=== PATIENT | male | born 1995 | race Caucasian/White ===

== ENCOUNTER 2021-07-24 13:35 | Inpatient (IN) | payer BC, OTHER ==
[2021-07-24 15:29] VITALS: BMI 29.4
[2021-07-24] MEDS ORDERED: ONDANSETRON *ODT* 4 MG TABLET SL PRN (16:40)
[2021-07-24] MEDS ORDERED: MENTHOL/PHENOL 1 EACH UD MM PRN (16:40)
[2021-07-24] MEDS ORDERED: MAGNESIUM CITRATE 300 ML BOTTLE PO PRN (16:40)
[2021-07-24] MEDS ORDERED: LOPERAMIDE HCL 2 MG CAPSULE PO PRN (16:40)
[2021-07-24] MEDS ORDERED: BISMUTH SUBSALICYLATE 524 MG/30 ML PO PRN (16:40)
[2021-07-24] MEDS ORDERED: MAG HYDROX/AL HYDROX/SIMETH 30 ML UNIT-DOSE CUP PO PRN (16:40)
[2021-07-24] MEDS ORDERED: NICOTINE 10 MG CARTRIDGE (INHALER) IH PRN (16:40)
[2021-07-24] MEDS ORDERED: MAGNESIUM HYDROX 2400MG/30ML ORAL SUSPENSION 30 ML CUP PO PRN (16:40)
[2021-07-24] MEDS ORDERED: METHOCARBAMOL 500 MG TABLET PO PRN (16:40)
[2021-07-24] MEDS ORDERED: ACETAMINOPHEN 325 MG TABLET (FP) PO PRN ×2 (16:40)
[2021-07-24] MEDS ORDERED: IBUPROFEN 400 MG TABLET (FP) PO PRN (16:40)
[2021-07-24] MEDS: hydrOXYzine PAMOATE 25 MG CAPSULE (FP) PO SCH ×2 (18:56→22:30)
[2021-07-24] MEDS: PRENATAL VITAMINS W/ FOLIC ACID TABLET (FP) PO SCH (20:04)
[2021-07-24] MEDS ORDERED: THIAMINE HCL 100 MG TABLET (FP) PO SCH (22:00)
[2021-07-24] MEDS ORDERED: MELATONIN 5 MG TABLETS PO SCH (22:00)
[2021-07-25] MEDS: hydrOXYzine PAMOATE 25 MG CAPSULE (FP) PO SCH ×2 (07:17→10:26)
[2021-07-25] MEDS ORDERED: methaDONE HCL 40 MG DISPERSABLE TABLET PO SCH (09:15)
[2021-07-25] MEDS: PRENATAL VITAMINS W/ FOLIC ACID TABLET (FP) PO SCH (10:26)
[2021-07-25 11:16] LABS: HEMATOCRIT 42.4 % (35.4-49); HEMOGLOBIN 14.4 GM/dL (11.7-16.9); MCHC 33.9 g/dl (32.0-35.9); MEAN CELL VOLUME 88.6 fl (80-96); MEAN PLT VOLUME 8.6 fl (7.5-11.1); PLATELET COUNT 236 10^3/uL (134-434); RBC 4.78 M/mm3 (4.00-5.60); RDW 13.2 % (11.9-15.9); WHITE BLOOD COUNT 7.4 K/mm3 (4.0-10.0)
[2021-07-25 11:20] LABS: BLOOD UREA NITROGEN 13.6 mg/dL (7-18)
[2021-07-25 11:22] LABS: ALBUMIN 3.6 g/dl (3.4-5.0); CALCIUM 8.9 mg/dL (8.5-10.1)
[2021-07-25 11:23] LABS: CREATININE 0.8 mg/dL (0.55-1.3)
[2021-07-25 11:24] LABS: BILIRUBIN,TOTAL 0.6 mg/dL (0.2-1); TOT PROT 6.9 g/dl (6.4-8.2)
[2021-07-25 12:50] VITALS: BP 141/96; PULSE 102; TEMP 97.7
== END 2021-07-25 12:51 | disposition home or self-care (01) | DRG 897 ==
LOC: YASAS 13:35 → Y3N 16:55 → UNDOADMIN 16:55 → UNDODISIN 07-25 12:51
PROVIDERS: ADMIT Allergy & Immunology; ATTEND Allergy & Immunology
PROC: HZ2ZZZZ Detoxification Services for Substance Abuse Treatment (ICD-10-PCS; principal; 2021-07-24)
DX: F11.23 Opioid dependence with withdrawal (principal); F14.20 Cocaine dependence, uncomplicated; F13.20 Sedative, hypnotic or anxiolytic dependence, uncomplicated; F12.20 Cannabis dependence, uncomplicated; F41.8 Other specified anxiety disorders; F32.A Depression, unspecified; I10 Essential (primary) hypertension; Z62.810 Personal history of physical and sexual abuse in childhood; Z88.0 Allergy status to penicillin; Z72.89 Other problems related to lifestyle
CPT/HCPCS: 36415; 80053; 85027; 87811; C9803-CS; Q0162; U0003; U0005

== ENCOUNTER 2022-05-25 18:01 | Inpatient (IN) | payer OTHER ==
[2022-05-25 18:35] VITALS: BMI 27.7
[2022-05-25] MEDS ORDERED: NALOXONE HCL 0.4 MG/ML VIAL IM PRN (19:06)
[2022-05-25] MEDS ORDERED: P-EPHED 60MG/TRIPROLIDI 2.5MG TABLET PO PRN (19:06)
[2022-05-25] MEDS ORDERED: DICYCLOMINE HCL 10 MG CAPSULE PO PRN (19:06)
[2022-05-25] MEDS ORDERED: BISMUTH SUBSALICYLATE 524 MG/30 ML PO PRN (19:06)
[2022-05-25] MEDS ORDERED: IBUPROFEN 400 MG TABLET (FP) PO PRN (19:06)
[2022-05-25] MEDS ORDERED: MAG HYDROX/AL HYDROX/SIMETH 30 ML UNIT-DOSE CUP PO PRN (19:06)
[2022-05-25] MEDS ORDERED: MAGNESIUM HYDROX 2400MG/30ML ORAL SUSPENSION 30 ML CUP PO PRN (19:06)
[2022-05-25] MEDS ORDERED: POLYETHYLENE GLYCOL (HEALTHYLAX) 3350 17 GM PACKET PO PRN (19:06)
[2022-05-25] MEDS ORDERED: guaiFENesin 200 MG/10 ML 10 ML UNIT-DOSE CUPS PO PRN (19:06)
[2022-05-25] MEDS ORDERED: BENZOCAINE/MENTHOL (CHLORASEPTIC ) LOZENGE MM PRN (19:06)
[2022-05-25] MEDS ORDERED: LOPERAMIDE HCL 2 MG CAPSULE PO PRN (19:06)
[2022-05-25] MEDS ORDERED: ACETAMINOPHEN 325 MG TABLET (FP) PO PRN ×2 (19:06)
[2022-05-25] MEDS ORDERED: IBUPROFEN 600 MG TABLET (FP) PO PRN (19:06)
[2022-05-25] MEDS ORDERED: NALOXONE HCL (KLOXXADO) 8 MG SPRAY NS PRN (19:06)
[2022-05-25] MEDS: LISINOPRIL 10 MG TABLET PO SCH (20:00)
[2022-05-25] MEDS: METHOCARBAMOL 500 MG TABLET PO PRN (22:46)
[2022-05-25] MEDS: hydrOXYzine PAMOATE 25 MG CAPSULE (FP) PO PRN (22:46)
[2022-05-25] MEDS: THIAMINE HCL 100 MG TABLET (FP) PO SCH (22:46)
[2022-05-25] MEDS: MELATONIN 5 MG TABLETS PO PRN (22:47)
[2022-05-26] MEDS: PRENATAL VITAMINS W/ FOLIC ACID TABLET (FP) PO SCH (10:19)
[2022-05-26] MEDS: LISINOPRIL 10 MG TABLET PO SCH (10:19)
[2022-05-26] MEDS ORDERED: methaDONE HCL 10 MG TABLET (FOR DETOX USE ONLY) PO ONE (10:21)
[2022-05-26] MEDS: hydrOXYzine PAMOATE 25 MG CAPSULE (FP) PO PRN ×2 (10:54→22:21)
[2022-05-26] MEDS: METHOCARBAMOL 500 MG TABLET PO PRN ×2 (10:54→22:21)
[2022-05-26 11:09] LABS: HEMATOCRIT 46.8 % (35.4-49); HEMOGLOBIN 15.9 GM/dL (11.7-16.9); MCH 30.2 pg (25.7-33.7); MEAN CELL VOLUME 88.7 fl (80-96); MEAN PLT VOLUME 8.5 fl (7.5-11.1); PLATELET COUNT 285 10^3/uL (134-434); RBC 5.28 M/mm3 (4.00-5.60); RDW 13.1 % (11.9-15.9); WHITE BLOOD COUNT 6.3 K/mm3 (4.0-10.0)
[2022-05-26 11:14] LABS: ALBUMIN 4.2 g/dl (3.4-5.0); CALCIUM 9.4 mg/dL (8.5-10.1)
[2022-05-26 11:16] LABS: BLOOD UREA NITROGEN 10.1 mg/dL (7-18)
[2022-05-26 11:19] LABS: TOT PROT 7.7 g/dl (6.4-8.2)
[2022-05-26] MEDS: cloNIDine HCL 0.1 MG TABLET PO PRN ×2 (12:07→22:21)
[2022-05-26] MEDS: ONDANSETRON *ODT* 4 MG TABLET SL PRN (12:08)
[2022-05-26] MEDS: THIAMINE HCL 100 MG TABLET (FP) PO SCH (22:18)
[2022-05-26] MEDS: MELATONIN 5 MG TABLETS PO PRN (22:18)
[2022-05-27] MEDS: cloNIDine HCL 0.1 MG TABLET PO PRN ×3 (02:40→22:10)
[2022-05-27] MEDS: PRENATAL VITAMINS W/ FOLIC ACID TABLET (FP) PO SCH (10:22)
[2022-05-27] MEDS: LISINOPRIL 10 MG TABLET PO SCH (10:23)
[2022-05-27] MEDS: METHOCARBAMOL 500 MG TABLET PO PRN ×3 (10:23→23:05)
[2022-05-27] MEDS: hydrOXYzine PAMOATE 25 MG CAPSULE (FP) PO PRN (10:23)
[2022-05-27] MEDS: ONDANSETRON *ODT* 4 MG TABLET SL PRN (17:12)
[2022-05-27] MEDS: traZODone HCL 100 MG TABLET (FP) PO SCH (22:11)
[2022-05-27] MEDS: THIAMINE HCL 100 MG TABLET (FP) PO SCH (22:11)
[2022-05-28] MEDS: METHOCARBAMOL 500 MG TABLET PO PRN ×3 (05:11→22:09)
[2022-05-28] MEDS: ONDANSETRON *ODT* 4 MG TABLET SL PRN (08:45)
[2022-05-28] MEDS: LISINOPRIL 10 MG TABLET PO SCH (09:33)
[2022-05-28] MEDS: PRENATAL VITAMINS W/ FOLIC ACID TABLET (FP) PO SCH (09:34)
[2022-05-28] MEDS: hydrOXYzine PAMOATE 25 MG CAPSULE (FP) PO PRN ×2 (09:34→17:31)
[2022-05-28] MEDS ORDERED: methaDONE HCL 10 MG TABLET (FOR DETOX USE ONLY) PO ONE (10:00)
[2022-05-28] MEDS: cloNIDine HCL 0.1 MG TABLET PO PRN ×2 (14:41→22:08)
[2022-05-28] MEDS: THIAMINE HCL 100 MG TABLET (FP) PO SCH (22:08)
[2022-05-28] MEDS: traZODone HCL 100 MG TABLET (FP) PO SCH (22:08)
[2022-05-29] MEDS: METHOCARBAMOL 500 MG TABLET PO PRN ×3 (05:08→22:22)
[2022-05-29] MEDS: ONDANSETRON *ODT* 4 MG TABLET SL PRN (09:07)
[2022-05-29] MEDS: PRENATAL VITAMINS W/ FOLIC ACID TABLET (FP) PO SCH (09:45)
[2022-05-29] MEDS: hydrOXYzine PAMOATE 25 MG CAPSULE (FP) PO PRN (09:45)
[2022-05-29] MEDS: LISINOPRIL 10 MG TABLET PO SCH (09:45)
[2022-05-29] MEDS: THIAMINE HCL 100 MG TABLET (FP) PO SCH (22:22)
[2022-05-29] MEDS: traZODone HCL 50 MG TABLET (FP) PO SCH (22:22)
[2022-05-30] MEDS: METHOCARBAMOL 500 MG TABLET PO PRN ×2 (07:51→17:34)
[2022-05-30 09:08] VITALS: RESP 18
[2022-05-30] MEDS ORDERED: methaDONE HCL 10 MG TABLET (FOR DETOX USE ONLY) PO ONE (10:00)
[2022-05-30] MEDS: PRENATAL VITAMINS W/ FOLIC ACID TABLET (FP) PO SCH (10:02)
[2022-05-30] MEDS: hydrOXYzine PAMOATE 25 MG CAPSULE (FP) PO PRN (10:02)
[2022-05-30] MEDS: LISINOPRIL 10 MG TABLET PO SCH (10:02)
[2022-05-30] MEDS ORDERED: cloNIDine HCL 0.1 MG TABLET PO ONE (12:48)
[2022-05-30] MEDS: THIAMINE HCL 100 MG TABLET (FP) PO SCH (22:08)
[2022-05-30] MEDS: traZODone HCL 50 MG TABLET (FP) PO SCH (22:08)
[2022-05-31] MEDS: hydrOXYzine PAMOATE 25 MG CAPSULE (FP) PO PRN (05:12)
[2022-05-31] MEDS: METHOCARBAMOL 500 MG TABLET PO PRN (05:13)
[2022-05-31] MEDS: ONDANSETRON *ODT* 4 MG TABLET SL PRN (05:14)
[2022-05-31] MEDS: LISINOPRIL 10 MG TABLET PO SCH (10:45)
[2022-05-31] MEDS: PRENATAL VITAMINS W/ FOLIC ACID TABLET (FP) PO SCH (10:45)
[2022-05-31 12:51] VITALS: BP 132/87; PULSE 67; TEMP 97.4
== END 2022-05-31 12:51 | disposition other institution (70) | DRG 773 ==
LOC: YASAS 18:01 → Y6N 19:29
PROVIDERS: ADMIT Allergy & Immunology; ATTEND Family Medicine
PROC: HZ2ZZZZ Detoxification Services for Substance Abuse Treatment (ICD-10-PCS; principal; 2022-05-25)
DX: F11.23 Opioid dependence with withdrawal (principal); F13.20 Sedative, hypnotic or anxiolytic dependence, uncomplicated; F12.20 Cannabis dependence, uncomplicated; F17.210 Nicotine dependence, cigarettes, uncomplicated; F19.282 Other psychoactive substance dependence with psychoactive substance-induced sleep disorder; F19.280 Other psychoactive substance dependence with psychoactive substance-induced anxiety disorder; F41.9 Anxiety disorder, unspecified; F32.A Depression, unspecified; Z62.810 Personal history of physical and sexual abuse in childhood
CPT/HCPCS: 36415; 80053; 85027; 86780; C9803-CS; G0463; Q0162; U0003; U0005

== ENCOUNTER 2022-05-31 13:07 | Inpatient (IN) | payer BC, OTHER ==
[2022-05-31] MEDS ORDERED: POLYETHYLENE GLYCOL (HEALTHYLAX) 3350 17 GM PACKET PO PRN (14:45)
[2022-05-31] MEDS ORDERED: guaiFENesin 200 MG/10 ML 10 ML UNIT-DOSE CUPS PO PRN (14:45)
[2022-05-31] MEDS ORDERED: LOPERAMIDE HCL 2 MG CAPSULE PO PRN (14:45)
[2022-05-31] MEDS ORDERED: MAGNESIUM HYDROX 2400MG/30ML ORAL SUSPENSION 30 ML CUP PO PRN (14:45)
[2022-05-31] MEDS ORDERED: P-EPHED 60MG/TRIPROLIDI 2.5MG TABLET PO PRN (14:45)
[2022-05-31] MEDS ORDERED: BENZOCAINE/MENTHOL (CHLORASEPTIC ) LOZENGE MM PRN (14:45)
[2022-05-31] MEDS: THIAMINE HCL 100 MG TABLET (FP) PO SCH (21:47)
[2022-05-31] MEDS: hydrOXYzine PAMOATE 25 MG CAPSULE (FP) PO PRN (21:47)
[2022-05-31] MEDS: MELATONIN 5 MG TABLETS PO SCH (21:47)
[2022-05-31] MEDS: traZODone HCL 50 MG TABLET (FP) PO SCH (21:48)
[2022-06-01] MEDS: MAG HYDROX/AL HYDROX/SIMETH 30 ML UNIT-DOSE CUP PO PRN (09:02)
[2022-06-01] MEDS: PRENATAL VITAMINS W/ FOLIC ACID TABLET (FP) PO SCH (09:54)
[2022-06-01] MEDS: LISINOPRIL 10 MG TABLET PO SCH (09:54)
[2022-06-01] MEDS: NICOTINE 7 MG/24 HOURS TOPICAL PATCH TD SCH (09:55)
[2022-06-01] MEDS: IBUPROFEN 400 MG TABLET (FP) PO PRN (09:58)
[2022-06-01] MEDS: hydrOXYzine PAMOATE 25 MG CAPSULE (FP) PO PRN ×2 (09:59→22:54)
[2022-06-01] MEDS ORDERED: PNEUMOC 20-VAL CONJ-DIP CRM/PF 0.5 ML SYRINGE IM ONE (12:00)
[2022-06-01] MEDS ORDERED: cloNIDine HCL 0.1 MG TABLET PO PRN (15:14)
[2022-06-01] MEDS: cloNIDine HCL 0.1 MG TABLET PO PRN (15:38)
[2022-06-01] MEDS: THIAMINE HCL 100 MG TABLET (FP) PO SCH (21:31)
[2022-06-01] MEDS: traZODone HCL 50 MG TABLET (FP) PO SCH (21:31)
[2022-06-01] MEDS: MELATONIN 5 MG TABLETS PO SCH (21:31)
[2022-06-01] MEDS: ACETAMINOPHEN 325 MG TABLET (FP) PO PRN (21:33)
[2022-06-01] MEDS ORDERED: cloNIDine HCL 0.1 MG TABLET PO SCH (22:00)
[2022-06-02] MEDS: cloNIDine HCL 0.1 MG TABLET PO PRN ×2 (06:41→21:37)
[2022-06-02] MEDS: hydrOXYzine PAMOATE 25 MG CAPSULE (FP) PO PRN ×3 (06:42→21:36)
[2022-06-02] MEDS: PRENATAL VITAMINS W/ FOLIC ACID TABLET (FP) PO SCH (09:49)
[2022-06-02] MEDS: NICOTINE 7 MG/24 HOURS TOPICAL PATCH TD SCH (09:50)
[2022-06-02] MEDS: NICOTINE 10 MG CARTRIDGE (INHALER) IH PRN ×2 (09:50→18:49)
[2022-06-02] MEDS: LISINOPRIL 10 MG TABLET PO SCH (09:51)
[2022-06-02] MEDS: ACETAMINOPHEN 325 MG TABLET (FP) PO PRN ×2 (09:52→21:37)
[2022-06-02] MEDS: MAG HYDROX/AL HYDROX/SIMETH 30 ML UNIT-DOSE CUP PO PRN (13:23)
[2022-06-02] MEDS: THIAMINE HCL 100 MG TABLET (FP) PO SCH (21:36)
[2022-06-02] MEDS: traZODone HCL 50 MG TABLET (FP) PO SCH (21:36)
[2022-06-02] MEDS: MELATONIN 5 MG TABLETS PO SCH (21:36)
[2022-06-03] MEDS: IBUPROFEN 400 MG TABLET (FP) PO PRN ×2 (07:05→20:43)
[2022-06-03] MEDS: hydrOXYzine PAMOATE 25 MG CAPSULE (FP) PO PRN (07:06)
[2022-06-03] MEDS: NICOTINE 7 MG/24 HOURS TOPICAL PATCH TD SCH (09:10)
[2022-06-03] MEDS: PRENATAL VITAMINS W/ FOLIC ACID TABLET (FP) PO SCH (09:10)
[2022-06-03] MEDS: LISINOPRIL 10 MG TABLET PO SCH (09:11)
[2022-06-03] MEDS: cloNIDine HCL 0.1 MG TABLET PO PRN ×2 (09:12→21:32)
[2022-06-03] MEDS: MAG HYDROX/AL HYDROX/SIMETH 30 ML UNIT-DOSE CUP PO PRN (11:34)
[2022-06-03] MEDS: ACETAMINOPHEN 325 MG TABLET (FP) PO PRN (14:34)
[2022-06-03] MEDS: MELATONIN 5 MG TABLETS PO SCH (21:32)
[2022-06-03] MEDS: traZODone HCL 50 MG TABLET (FP) PO SCH (21:32)
[2022-06-03] MEDS: THIAMINE HCL 100 MG TABLET (FP) PO SCH (21:32)
[2022-06-03] MEDS: SUVOREXANT 10 MG TABLET PO PRN (21:34)
[2022-06-04] MEDS: PRENATAL VITAMINS W/ FOLIC ACID TABLET (FP) PO SCH (09:22)
[2022-06-04] MEDS: NICOTINE 10 MG CARTRIDGE (INHALER) IH PRN ×2 (09:23→16:59)
[2022-06-04] MEDS: LISINOPRIL 10 MG TABLET PO SCH (09:23)
[2022-06-04] MEDS: NICOTINE 7 MG/24 HOURS TOPICAL PATCH TD SCH (09:23)
[2022-06-04] MEDS: MAG HYDROX/AL HYDROX/SIMETH 30 ML UNIT-DOSE CUP PO PRN (09:25)
[2022-06-04] MEDS: hydrOXYzine PAMOATE 25 MG CAPSULE (FP) PO PRN (18:15)
[2022-06-04] MEDS: ACETAMINOPHEN 325 MG TABLET (FP) PO PRN (18:15)
[2022-06-04] MEDS: traZODone HCL 50 MG TABLET (FP) PO SCH (21:17)
[2022-06-04] MEDS: DOCUSATE SODIUM 100 MG CAPSULE (FP) PO SCH (21:17)
[2022-06-04] MEDS: THIAMINE HCL 100 MG TABLET (FP) PO SCH (21:17)
[2022-06-04] MEDS: MELATONIN 5 MG TABLETS PO SCH (21:17)
[2022-06-04] MEDS: SUVOREXANT 10 MG TABLET PO PRN (21:18)
[2022-06-05] MEDS: hydrOXYzine PAMOATE 25 MG CAPSULE (FP) PO PRN ×2 (08:04→20:27)
[2022-06-05] MEDS: ACETAMINOPHEN 325 MG TABLET (FP) PO PRN (08:04)
[2022-06-05] MEDS: NICOTINE 7 MG/24 HOURS TOPICAL PATCH TD SCH (09:16)
[2022-06-05] MEDS: DOCUSATE SODIUM 100 MG CAPSULE (FP) PO SCH ×2 (09:16→21:12)
[2022-06-05] MEDS: LISINOPRIL 10 MG TABLET PO SCH (09:16)
[2022-06-05] MEDS: PRENATAL VITAMINS W/ FOLIC ACID TABLET (FP) PO SCH (09:16)
[2022-06-05] MEDS: ONDANSETRON *ODT* 4 MG TABLET SL PRN (11:52)
[2022-06-05] MEDS: METHOCARBAMOL 500 MG TABLET PO PRN ×2 (11:52→20:26)
[2022-06-05] MEDS: MELATONIN 5 MG TABLETS PO SCH (21:12)
[2022-06-05] MEDS: traZODone HCL 50 MG TABLET (FP) PO SCH (21:12)
[2022-06-05] MEDS: NICOTINE 10 MG CARTRIDGE (INHALER) IH PRN (21:12)
[2022-06-05] MEDS: THIAMINE HCL 100 MG TABLET (FP) PO SCH (21:12)
[2022-06-05] MEDS: SUVOREXANT 10 MG TABLET PO PRN (21:13)
[2022-06-06] MEDS: hydrOXYzine PAMOATE 25 MG CAPSULE (FP) PO PRN ×2 (06:20→22:35)
[2022-06-06] MEDS: METHOCARBAMOL 500 MG TABLET PO PRN ×3 (06:20→21:12)
[2022-06-06] MEDS: ONDANSETRON *ODT* 4 MG TABLET SL PRN (09:20)
[2022-06-06] MEDS: PRENATAL VITAMINS W/ FOLIC ACID TABLET (FP) PO SCH (09:21)
[2022-06-06] MEDS: NICOTINE 7 MG/24 HOURS TOPICAL PATCH TD SCH (09:21)
[2022-06-06] MEDS: cloNIDine HCL 0.1 MG TABLET PO PRN (09:21)
[2022-06-06] MEDS: DOCUSATE SODIUM 100 MG CAPSULE (FP) PO SCH ×2 (09:23→21:12)
[2022-06-06] MEDS: LISINOPRIL 10 MG TABLET PO SCH (09:23)
[2022-06-06] MEDS: traZODone HCL 50 MG TABLET (FP) PO SCH (21:12)
[2022-06-06] MEDS: THIAMINE HCL 100 MG TABLET (FP) PO SCH (21:12)
[2022-06-06] MEDS: PRAZOSIN HCL 1 MG CAPSULE PO SCH (21:12)
[2022-06-06] MEDS: SUVOREXANT 10 MG TABLET PO PRN (21:18)
[2022-06-06] MEDS: MELATONIN 5 MG TABLETS PO SCH (21:37)
[2022-06-06] MEDS: ACETAMINOPHEN 325 MG TABLET (FP) PO PRN (23:09)
[2022-06-07] MEDS: LISINOPRIL 10 MG TABLET PO SCH (10:01)
[2022-06-07] MEDS: hydrOXYzine PAMOATE 25 MG CAPSULE (FP) PO PRN (10:01)
[2022-06-07] MEDS: NICOTINE 7 MG/24 HOURS TOPICAL PATCH TD SCH (10:01)
[2022-06-07] MEDS: DOCUSATE SODIUM 100 MG CAPSULE (FP) PO SCH ×2 (10:01→21:21)
[2022-06-07] MEDS: PRENATAL VITAMINS W/ FOLIC ACID TABLET (FP) PO SCH (10:01)
[2022-06-07] MEDS: METHOCARBAMOL 500 MG TABLET PO PRN ×2 (10:01→21:21)
[2022-06-07] MEDS: cloNIDine HCL 0.1 MG TABLET PO PRN (13:07)
[2022-06-07] MEDS: NICOTINE 10 MG CARTRIDGE (INHALER) IH PRN ×2 (16:46→21:23)
[2022-06-07] MEDS: traZODone HCL 50 MG TABLET (FP) PO SCH (21:21)
[2022-06-07] MEDS: MELATONIN 5 MG TABLETS PO SCH (21:21)
[2022-06-07] MEDS: THIAMINE HCL 100 MG TABLET (FP) PO SCH (21:21)
[2022-06-07] MEDS: PRAZOSIN HCL 1 MG CAPSULE PO SCH (21:21)
[2022-06-07] MEDS: SUVOREXANT 10 MG TABLET PO PRN (21:22)
[2022-06-08] MEDS: PRENATAL VITAMINS W/ FOLIC ACID TABLET (FP) PO SCH (10:10)
[2022-06-08] MEDS: DOCUSATE SODIUM 100 MG CAPSULE (FP) PO SCH ×2 (10:11→21:28)
[2022-06-08] MEDS: METHOCARBAMOL 500 MG TABLET PO PRN (10:11)
[2022-06-08] MEDS: NICOTINE 7 MG/24 HOURS TOPICAL PATCH TD SCH (10:11)
[2022-06-08] MEDS: LISINOPRIL 10 MG TABLET PO SCH (10:11)
[2022-06-08] MEDS: hydrOXYzine PAMOATE 25 MG CAPSULE (FP) PO PRN (10:12)
[2022-06-08] MEDS: SUVOREXANT 10 MG TABLET PO PRN (21:28)
[2022-06-08] MEDS: traZODone HCL 50 MG TABLET (FP) PO SCH (21:29)
[2022-06-08] MEDS: PRAZOSIN HCL 1 MG CAPSULE PO SCH (21:29)
[2022-06-08] MEDS: MELATONIN 5 MG TABLETS PO SCH (21:29)
[2022-06-08] MEDS: THIAMINE HCL 100 MG TABLET (FP) PO SCH (21:29)
[2022-06-09] MEDS: NICOTINE 7 MG/24 HOURS TOPICAL PATCH TD SCH (09:14)
[2022-06-09] MEDS: ONDANSETRON *ODT* 4 MG TABLET SL PRN (09:18)
[2022-06-09] MEDS: PRENATAL VITAMINS W/ FOLIC ACID TABLET (FP) PO SCH (09:18)
[2022-06-09] MEDS: LISINOPRIL 10 MG TABLET PO SCH (09:18)
[2022-06-09] MEDS: DOCUSATE SODIUM 100 MG CAPSULE (FP) PO SCH ×2 (09:18→21:18)
[2022-06-09] MEDS: METHOCARBAMOL 500 MG TABLET PO PRN ×2 (09:49→21:17)
[2022-06-09] MEDS ORDERED: COLLOIDAL OATMEAL 1 BAR EACH TP PRN (12:19)
[2022-06-09] MEDS: traZODone HCL 50 MG TABLET (FP) PO SCH (21:17)
[2022-06-09] MEDS: PRAZOSIN HCL 1 MG CAPSULE PO SCH (21:17)
[2022-06-09] MEDS: THIAMINE HCL 100 MG TABLET (FP) PO SCH (21:17)
[2022-06-09] MEDS: MELATONIN 5 MG TABLETS PO SCH (21:18)
[2022-06-09] MEDS: SUVOREXANT 10 MG TABLET PO PRN (21:19)
[2022-06-10] MEDS: NICOTINE 7 MG/24 HOURS TOPICAL PATCH TD SCH (10:16)
[2022-06-10] MEDS: PRENATAL VITAMINS W/ FOLIC ACID TABLET (FP) PO SCH (10:16)
[2022-06-10] MEDS: DOCUSATE SODIUM 100 MG CAPSULE (FP) PO SCH ×2 (10:16→21:32)
[2022-06-10] MEDS: NICOTINE 10 MG CARTRIDGE (INHALER) IH PRN (10:17)
[2022-06-10] MEDS: hydrOXYzine PAMOATE 25 MG CAPSULE (FP) PO PRN ×2 (10:18→21:37)
[2022-06-10] MEDS: ACETAMINOPHEN 325 MG TABLET (FP) PO PRN (10:18)
[2022-06-10] MEDS: METHOCARBAMOL 500 MG TABLET PO PRN ×2 (10:18→21:35)
[2022-06-10] MEDS: LISINOPRIL 10 MG TABLET PO SCH (10:19)
[2022-06-10] MEDS: PRAZOSIN HCL 1 MG CAPSULE PO SCH (21:32)
[2022-06-10] MEDS: THIAMINE HCL 100 MG TABLET (FP) PO SCH (21:32)
[2022-06-10] MEDS: traZODone HCL 50 MG TABLET (FP) PO SCH (21:32)
[2022-06-10] MEDS: MELATONIN 5 MG TABLETS PO SCH (21:33)
[2022-06-10] MEDS: SUVOREXANT 10 MG TABLET PO PRN (21:36)
[2022-06-11] MEDS: NICOTINE 7 MG/24 HOURS TOPICAL PATCH TD SCH (09:45)
[2022-06-11] MEDS: LISINOPRIL 10 MG TABLET PO SCH (09:45)
[2022-06-11] MEDS: PRENATAL VITAMINS W/ FOLIC ACID TABLET (FP) PO SCH (09:45)
[2022-06-11] MEDS: DOCUSATE SODIUM 100 MG CAPSULE (FP) PO SCH ×2 (09:46→21:23)
[2022-06-11] MEDS: hydrOXYzine PAMOATE 25 MG CAPSULE (FP) PO PRN (12:27)
[2022-06-11] MEDS: METHOCARBAMOL 500 MG TABLET PO PRN ×2 (12:27→21:21)
[2022-06-11] MEDS: SUVOREXANT 10 MG TABLET PO PRN (21:22)
[2022-06-11] MEDS: traZODone HCL 50 MG TABLET (FP) PO SCH (21:23)
[2022-06-11] MEDS: THIAMINE HCL 100 MG TABLET (FP) PO SCH (21:23)
[2022-06-11] MEDS: PRAZOSIN HCL 1 MG CAPSULE PO SCH (21:23)
[2022-06-11] MEDS: MELATONIN 5 MG TABLETS PO SCH (21:24)
[2022-06-12] MEDS: hydrOXYzine PAMOATE 25 MG CAPSULE (FP) PO PRN ×2 (07:50→14:39)
[2022-06-12] MEDS: DOCUSATE SODIUM 100 MG CAPSULE (FP) PO SCH ×2 (09:42→21:10)
[2022-06-12] MEDS: NICOTINE 7 MG/24 HOURS TOPICAL PATCH TD SCH (09:42)
[2022-06-12] MEDS: LISINOPRIL 10 MG TABLET PO SCH (09:42)
[2022-06-12] MEDS: PRENATAL VITAMINS W/ FOLIC ACID TABLET (FP) PO SCH (09:42)
[2022-06-12] MEDS: METHOCARBAMOL 500 MG TABLET PO PRN ×3 (09:42→21:10)
[2022-06-12] MEDS: METOPROLOL TARTRATE 25 MG TABLET (FP) PO SCH (11:19)
[2022-06-12] MEDS: ONDANSETRON *ODT* 4 MG TABLET SL PRN (11:21)
[2022-06-12] MEDS: SUVOREXANT 10 MG TABLET PO PRN (21:09)
[2022-06-12] MEDS: PRAZOSIN HCL 1 MG CAPSULE PO SCH (21:10)
[2022-06-12] MEDS: THIAMINE HCL 100 MG TABLET (FP) PO SCH (21:11)
[2022-06-12] MEDS: traZODone HCL 50 MG TABLET (FP) PO SCH (21:11)
[2022-06-12] MEDS: MELATONIN 5 MG TABLETS PO SCH (21:43)
[2022-06-13] MEDS: NICOTINE 7 MG/24 HOURS TOPICAL PATCH TD SCH (09:49)
[2022-06-13] MEDS: METOPROLOL TARTRATE 25 MG TABLET (FP) PO SCH (09:49)
[2022-06-13] MEDS: PRENATAL VITAMINS W/ FOLIC ACID TABLET (FP) PO SCH (09:49)
[2022-06-13] MEDS: DOCUSATE SODIUM 100 MG CAPSULE (FP) PO SCH ×2 (09:49→21:13)
[2022-06-13] MEDS: hydrOXYzine PAMOATE 25 MG CAPSULE (FP) PO PRN ×2 (09:50→21:39)
[2022-06-13] MEDS: traZODone HCL 50 MG TABLET (FP) PO SCH (21:12)
[2022-06-13] MEDS: THIAMINE HCL 100 MG TABLET (FP) PO SCH (21:12)
[2022-06-13] MEDS: PRAZOSIN HCL 1 MG CAPSULE PO SCH (21:12)
[2022-06-13] MEDS: MELATONIN 5 MG TABLETS PO SCH (21:13)
[2022-06-13] MEDS: SUVOREXANT 10 MG TABLET PO PRN (21:38)
[2022-06-14] MEDS: METOPROLOL TARTRATE 25 MG TABLET (FP) PO SCH (09:40)
[2022-06-14] MEDS: DOCUSATE SODIUM 100 MG CAPSULE (FP) PO SCH ×2 (09:40→21:21)
[2022-06-14] MEDS: PRENATAL VITAMINS W/ FOLIC ACID TABLET (FP) PO SCH (09:41)
[2022-06-14] MEDS: NICOTINE 7 MG/24 HOURS TOPICAL PATCH TD SCH (09:41)
[2022-06-14] MEDS: hydrOXYzine PAMOATE 25 MG CAPSULE (FP) PO PRN ×2 (14:40→21:21)
[2022-06-14] MEDS: METHOCARBAMOL 500 MG TABLET PO PRN (19:10)
[2022-06-14] MEDS: traZODone HCL 50 MG TABLET (FP) PO SCH (21:19)
[2022-06-14] MEDS: THIAMINE HCL 100 MG TABLET (FP) PO SCH (21:20)
[2022-06-14] MEDS: PRAZOSIN HCL 1 MG CAPSULE PO SCH (21:20)
[2022-06-14] MEDS: MELATONIN 5 MG TABLETS PO SCH (21:20)
[2022-06-14] MEDS: NICOTINE 10 MG CARTRIDGE (INHALER) IH PRN (21:22)
[2022-06-14] MEDS: SUVOREXANT 10 MG TABLET PO PRN (21:22)
[2022-06-15] MEDS: METOPROLOL TARTRATE 25 MG TABLET (FP) PO SCH (09:53)
[2022-06-15] MEDS: NICOTINE 7 MG/24 HOURS TOPICAL PATCH TD SCH (09:54)
[2022-06-15] MEDS: DOCUSATE SODIUM 100 MG CAPSULE (FP) PO SCH ×2 (09:54→21:13)
[2022-06-15] MEDS: PRENATAL VITAMINS W/ FOLIC ACID TABLET (FP) PO SCH (09:54)
[2022-06-15] MEDS: METHOCARBAMOL 500 MG TABLET PO PRN (11:43)
[2022-06-15] MEDS: ONDANSETRON *ODT* 4 MG TABLET SL PRN (11:44)
[2022-06-15] MEDS: hydrOXYzine PAMOATE 25 MG CAPSULE (FP) PO PRN (14:51)
[2022-06-15] MEDS: SUVOREXANT 10 MG TABLET PO PRN (21:12)
[2022-06-15] MEDS: THIAMINE HCL 100 MG TABLET (FP) PO SCH (21:12)
[2022-06-15] MEDS: traZODone HCL 50 MG TABLET (FP) PO SCH (21:12)
[2022-06-15] MEDS: PRAZOSIN HCL 1 MG CAPSULE PO SCH (21:13)
[2022-06-15] MEDS ORDERED: SUVOREXANT 10 MG TABLET PO PRN (22:00)
[2022-06-16] MEDS: DOCUSATE SODIUM 100 MG CAPSULE (FP) PO SCH ×2 (09:39→21:15)
[2022-06-16] MEDS: NICOTINE 7 MG/24 HOURS TOPICAL PATCH TD SCH (09:39)
[2022-06-16] MEDS: PRENATAL VITAMINS W/ FOLIC ACID TABLET (FP) PO SCH (09:39)
[2022-06-16] MEDS: hydrOXYzine PAMOATE 25 MG CAPSULE (FP) PO PRN ×2 (09:40→21:15)
[2022-06-16] MEDS: METOPROLOL TARTRATE 25 MG TABLET (FP) PO SCH (09:40)
[2022-06-16] MEDS: PRAZOSIN HCL 1 MG CAPSULE PO SCH (21:13)
[2022-06-16] MEDS: traZODone HCL 50 MG TABLET (FP) PO SCH (21:13)
[2022-06-16] MEDS: THIAMINE HCL 100 MG TABLET (FP) PO SCH (21:13)
[2022-06-17] MEDS: DOCUSATE SODIUM 100 MG CAPSULE (FP) PO SCH ×2 (09:39→21:19)
[2022-06-17] MEDS: PRENATAL VITAMINS W/ FOLIC ACID TABLET (FP) PO SCH (09:39)
[2022-06-17] MEDS: NICOTINE 7 MG/24 HOURS TOPICAL PATCH TD SCH (09:39)
[2022-06-17] MEDS: METOPROLOL TARTRATE 25 MG TABLET (FP) PO SCH (09:40)
[2022-06-17] MEDS: hydrOXYzine PAMOATE 25 MG CAPSULE (FP) PO PRN (11:26)
[2022-06-17] MEDS: METHOCARBAMOL 500 MG TABLET PO PRN ×2 (12:32→21:17)
[2022-06-17] MEDS: traZODone HCL 50 MG TABLET (FP) PO SCH (21:17)
[2022-06-17] MEDS: SUVOREXANT 10 MG TABLET PO PRN (21:18)
[2022-06-17] MEDS: THIAMINE HCL 100 MG TABLET (FP) PO SCH (21:18)
[2022-06-17] MEDS: PRAZOSIN HCL 1 MG CAPSULE PO SCH (21:18)
[2022-06-17] MEDS: ACETAMINOPHEN 325 MG TABLET (FP) PO PRN (22:47)
[2022-06-18] MEDS: METOPROLOL TARTRATE 25 MG TABLET (FP) PO SCH (09:35)
[2022-06-18] MEDS: DOCUSATE SODIUM 100 MG CAPSULE (FP) PO SCH ×2 (09:35→21:18)
[2022-06-18] MEDS: PRENATAL VITAMINS W/ FOLIC ACID TABLET (FP) PO SCH (09:35)
[2022-06-18] MEDS: NICOTINE 7 MG/24 HOURS TOPICAL PATCH TD SCH (09:35)
[2022-06-18] MEDS: NICOTINE 10 MG CARTRIDGE (INHALER) IH PRN (20:41)
[2022-06-18] MEDS: PRAZOSIN HCL 1 MG CAPSULE PO SCH (21:08)
[2022-06-18] MEDS: traZODone HCL 50 MG TABLET (FP) PO SCH (21:08)
[2022-06-18] MEDS: THIAMINE HCL 100 MG TABLET (FP) PO SCH (21:08)
[2022-06-18] MEDS: SUVOREXANT 10 MG TABLET PO PRN (21:08)
[2022-06-18 21:18] VITALS: RESP 18
[2022-06-19] MEDS: METOPROLOL TARTRATE 25 MG TABLET (FP) PO SCH (10:30)
[2022-06-19] MEDS: DOCUSATE SODIUM 100 MG CAPSULE (FP) PO SCH (10:30)
[2022-06-19] MEDS: PRENATAL VITAMINS W/ FOLIC ACID TABLET (FP) PO SCH (10:30)
[2022-06-19] MEDS: NICOTINE 7 MG/24 HOURS TOPICAL PATCH TD SCH (10:30)
[2022-06-19] MEDS: traZODone HCL 50 MG TABLET (FP) PO SCH (21:15)
[2022-06-19] MEDS: THIAMINE HCL 100 MG TABLET (FP) PO SCH (21:15)
[2022-06-19] MEDS: SUVOREXANT 10 MG TABLET PO PRN (21:18)
[2022-06-19] MEDS: PRAZOSIN HCL 1 MG CAPSULE PO SCH (21:18)
[2022-06-20] MEDS: METOPROLOL TARTRATE 25 MG TABLET (FP) PO SCH (09:15)
[2022-06-20] MEDS: hydrOXYzine PAMOATE 25 MG CAPSULE (FP) PO PRN (09:15)
[2022-06-20] MEDS: ACETAMINOPHEN 325 MG TABLET (FP) PO PRN (09:15)
[2022-06-20] MEDS: PRENATAL VITAMINS W/ FOLIC ACID TABLET (FP) PO SCH (09:16)
[2022-06-20] MEDS: NICOTINE 7 MG/24 HOURS TOPICAL PATCH TD SCH (09:16)
[2022-06-20] MEDS: THIAMINE HCL 100 MG TABLET (FP) PO SCH (21:13)
[2022-06-20] MEDS: traZODone HCL 50 MG TABLET (FP) PO SCH (21:13)
[2022-06-20] MEDS: SUVOREXANT 10 MG TABLET PO PRN (21:14)
[2022-06-20] MEDS: PRAZOSIN HCL 1 MG CAPSULE PO SCH (21:52)
[2022-06-20] MEDS ORDERED: SUVOREXANT 10 MG TABLET PO PRN (22:00)
[2022-06-21] MEDS: METOPROLOL TARTRATE 25 MG TABLET (FP) PO SCH (09:57)
[2022-06-21] MEDS: PRENATAL VITAMINS W/ FOLIC ACID TABLET (FP) PO SCH (09:57)
[2022-06-21] MEDS: hydrOXYzine PAMOATE 25 MG CAPSULE (FP) PO PRN (09:58)
[2022-06-21] MEDS: NICOTINE 7 MG/24 HOURS TOPICAL PATCH TD SCH (09:58)
[2022-06-21] MEDS: THIAMINE HCL 100 MG TABLET (FP) PO SCH (21:17)
[2022-06-21] MEDS: traZODone HCL 50 MG TABLET (FP) PO SCH (21:17)
[2022-06-21] MEDS: PRAZOSIN HCL 1 MG CAPSULE PO SCH (21:17)
[2022-06-22 07:39] VITALS: TEMP 97.7
[2022-06-22] MEDS: NICOTINE 7 MG/24 HOURS TOPICAL PATCH TD SCH (09:49)
[2022-06-22] MEDS: METOPROLOL TARTRATE 25 MG TABLET (FP) PO SCH (09:49)
[2022-06-22] MEDS: PRENATAL VITAMINS W/ FOLIC ACID TABLET (FP) PO SCH (09:49)
[2022-06-22 13:03] VITALS: BP 151/80; PULSE 118
== END 2022-06-22 15:23 | disposition home or self-care (01) | DRG 772 ==
LOC: YASAS 13:07 → Y5N 13:08
PROVIDERS: ADMIT Allergy & Immunology; ATTEND Allergy & Immunology
PROC: HZ42ZZZ Group Counseling for Substance Abuse Treatment, Cognitive-Behavioral (ICD-10-PCS; principal; 2022-05-31)
DX: F11.20 Opioid dependence, uncomplicated (principal); F13.20 Sedative, hypnotic or anxiolytic dependence, uncomplicated; F14.20 Cocaine dependence, uncomplicated; F12.20 Cannabis dependence, uncomplicated; F19.282 Other psychoactive substance dependence with psychoactive substance-induced sleep disorder; F19.280 Other psychoactive substance dependence with psychoactive substance-induced anxiety disorder; F43.22 Adjustment disorder with anxiety; F41.9 Anxiety disorder, unspecified; I10 Essential (primary) hypertension; K59.00 Constipation, unspecified; R00.0 Tachycardia, unspecified; Z72.0 Tobacco use
CPT/HCPCS: 36415; 84443; 93005; 93010; Q0162